=== PATIENT | male | born 1970 | race Caucasian/White ===

== ENCOUNTER 2022-10-02 13:57 | Emergency (ER) | payer OTHER, SELFPAY ==
[2022-10-02 14:08] VITALS: BP 156/79; PULSE 88; RESP 18; TEMP 36.6; O2SAT 99; BMI 29.6
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
== END 2022-10-02 14:20 | disposition home or self-care (01) ==
PROVIDERS: Emergency Provider Emergency Medicine; PCP Internal Medicine
DX: S13.4XXA Sprain of ligaments of cervical spine, initial encounter (principal); V43.52XA Car driver injured in collision with other type car in traffic accident, initial encounter; Y93.9 Activity, unspecified; Y92.9 Unspecified place or not applicable; Y99.9 Unspecified external cause status
CPT/HCPCS: 99282